=== PATIENT | male | born 1960 | race African-American/Black ===

== ENCOUNTER → 2024-08-05 13:27 | Outpatient (REF) | payer OTHER, SELFPAY ==
[2024-08-05 13:26] LABS: % Basophils 2.1 % (0-2); % Eosinophils 4.4 % (0-6); % Immature Granulocytes 0.6 % (0-0.5); % Lymphocytes 21.2 % (20.5-51.1); % Monocytes 5.7 % (1.7-9.3); Absolute Basophils 0.3 10^3/uL (0-0.2); Absolute Eosinophils 0.7 10^3/uL (0-0.7); Absolute Immature Granulocytes 0.1 10^3/uL (0-0.05); Absolute Lymphocytes 3.3 10^3/uL (1.2-3.4); Absolute Monocytes 0.9 10^3/uL (0.1-0.6); Absolute Neutrophils 10.4 10^3/uL (1.4-6.5); Hemoglobin 10.7 g/dL (13.0-18.0); Mean Corp Hgb Conc. 26.8 g/dL (33.0-37.0); Mean Corpuscular Hgb 15.3 pg (27.0-31.0); Mean Corpuscular Volume 57.1 fL (80.0-94.0); Nucleated Red Blood Cells % 1.8 % (-); Platelet Count 579 10^3/uL (130-400); Red Blood Cell Count 7.01 10^6/uL (4.70-6.10); Red Cell Dist. Width 29.3 % (11.5-14.5); White Blood Cell Count 15.7 10^3/uL (4.8-10.8)
== END ==
LOC: OIDL 13:27
PROVIDERS: ATTENDING PHYSICIAN Nurse Practitioner Acute Care
DX: D45 Polycythemia vera (principal)
CPT/HCPCS: 85025

== ENCOUNTER → 2024-09-02 12:48 | Outpatient (REF) | payer OTHER, SELFPAY | LOC: HWRAD 12:48 | PROVIDERS: ATTENDING PHYSICIAN Nurse Practitioner Adult Health | DX: D45 Polycythemia vera (principal); R80.9 Proteinuria, unspecified | CPT/HCPCS: 76770 ==

== ENCOUNTER → 2024-10-25 15:59 | Outpatient (REF) | payer OTHER, SELFPAY | LOC: RAD 15:59 | PROVIDERS: ATTENDING PHYSICIAN Nurse Practitioner Adult Health; REFERRING PHYSICIAN Student in an Organized Health Care Education/Training Program | DX: S99.922A Unspecified injury of left foot, initial encounter (principal) | CPT/HCPCS: 73630 ==

== ENCOUNTER → 2024-11-19 07:02 | Outpatient (REF) | payer OTHER, SELFPAY | LOC: HWRCS 07:02 | PROVIDERS: ATTENDING PHYSICIAN Student in an Organized Health Care Education/Training Program; FAMILY PHYSICIAN Nurse Practitioner Adult Health | DX: I25.5 Ischemic cardiomyopathy (principal) | CPT/HCPCS: 93306 ==

== ENCOUNTER 2024-12-03 06:10 | Day surgery (SDC) | payer OTHER, SELFPAY ==
[2024-12-03 08:15] VITALS: BMI 25.8
[2024-12-03 08:16] VITALS: BMI 25.8
[2024-12-03 08:17] VITALS: BP 113/56
[2024-12-03 08:28] LABS: Glucose - Point of Care 125 mg/dl (70-99)
[2024-12-03 10:04] VITALS: BP 107/56
[2024-12-03 10:15] VITALS: BP 130/65
[2024-12-03 10:16] LABS: Glucose - Point of Care 96 mg/dl (70-99)
[2024-12-03 10:30] VITALS: BP 132/67
== END 2024-12-03 10:55 | disposition home or self-care (01) ==
LOC: GI 06:10
PROVIDERS: ATTENDING PHYSICIAN Internal Medicine
DX: Z12.11 Encounter for screening for malignant neoplasm of colon (principal); K64.8 Other hemorrhoids; R63.4 Abnormal weight loss; K22.89 Other specified disease of esophagus; K29.70 Gastritis, unspecified, without bleeding; D12.3 Benign neoplasm of transverse colon; K62.1 Rectal polyp; Z86.0100 Personal history of colon polyps, unspecified
CPT/HCPCS: 45385; 45380; 43239; 88305; 82962; 88342

== ENCOUNTER 2025-01-13 14:30 | Inpatient (IN) | payer OTHER, SELFPAY ==
[2025-01-11 21:00] VITALS: BP 142/91
[2025-01-11 22:00] VITALS: BP 123/71
--- NOTE | 2025-01-11 22:13 | ED.GENMED ---
History of Present Illness
General
Chief Complaint: Chest Pain
Source: patient and spouse
Exam Limitations: none
Time Seen by Provider: 01/11/25 21:58
History of Present Illness
History of Present Illness:
Pleasant 64-year-old male presents to the emergency department with left-sided chest pain. Patient states that the pain has been going on since 9:30 AM and is nonradiating. Patient has extensive cardiac history he was followed by Dr. Fuentes. He
has 3 stents and an internal defibrillator. Patient is diabetic and takes oral agents for control. Patient reports no alleviating or exacerbating factors. He states his last episode of chest pain was just prior to arrival. Denies fever, chills,
nausea or vomiting. Reports no respiratory issues.
Past History
Past History
ED Past Medical History: GERD, HTN and Hypercholesterolemia
ED Past Surgical History: Cardiac (ICD left side, 3 stents)
Social History
Tobacco: Non-smoker
Personal: Single
Review of Systems
Review of Systems
Allergies reviewed?: Yes
All Other Systems: ROS reviewed and negative except as documented in HPI and ROS
Constitutional: Reports no symptoms
EENT: Reports no symptoms
Respiratory: Denies trouble breathing
Cardiac: Reports chest pain
ABD/GI: Reports no symptoms
: Reports no symptoms
Musculoskeletal: Reports no symptoms
Skin: Reports no symptoms
Neurological: Reports no symptoms
Endocrine: Reports no symptoms
Hematologic/Lymphatic: Reports no symptoms
Psychiatric: Reports no symptoms
Phy Exam
General Physical Exam
General Presentation: well appearing and no apparent distress
General Skin: warm and dry
General Habitus: normal
General Mental: alert
General Hydration: appears well hydrated
ENT Exam
ENT Exam: EOMI, pharynx normal, neck supple and normocephalic
Eye Exam
Eye Exam: PERRL, cornea clear and conjunctiva normal
Cardiovascular Exam
Cardiovascular Exam: regular rate/rhythm, no edema, no murmur and normal peripheral pulses
Pulmonary Exam
Pulmonary Exam: lungs clear, no respiratory distress, no rales, no crackles, no rhonchi, no stridor, no wheezing and no cough
Gastrointestinal Exam
Gastrointestinal Exam: normal bowel sounds, non tender, soft, no organomegaly, no pulsatile mass and non distended
Neurological Exam
Neurological Exam: alert, oriented x3, no motor deficits and speech normal
Musculoskeletal Exam
Musculoskeletal Exam: full ROM and no edema
Skin Exam
Skin Exam: normal color, warm/dry, no rash and no petechia
Psychiatric Exam
Psychiatric Exam: normal mood/affect
Scores
Heart Score for Chest Pain Patients
STEMI patient?: No
History: Moderately Suspicious
ECG: Nonspecific Repolarization
Age: >/= 65 years
Risk Factors: >/= 3 Risk Factors or History of CAD
Troponin: >1 - <3 x Normal Limit
Heart Score for Chest Pain Patients: 7
Heart Score Risk: 72.7 % MACE over next 6 weeks
Course
Orders/Labs/Results
Orders:
Orders
01/11/25 20:57
EKG [Electrocardiogram (*1)] Urgent
Reason for Study: Chest Pain
01/11/25 20:58
EKG- Treatment ONCE
01/11/25 21:52
Complete Blood Count/With Diff Urgent
Comprehensive Metabolic Panel Urgent
Manual Differential Urgent
Troponin I Urgent
01/11/25 22:15
CR Chest - 2 Views Urgent
Comment:
Reason For Exam: cp
01/12/25 00:35
Electrocardiogram (*1) Urgent
Reason for Study: Chest Pain
EKG- Treatment ONCE
01/12/25 00:39
Troponin I Urgent
01/12/25 00:59
CT Chest PE Study Urgent
Comment:
Reason For Exam: PCV dx with chest pain
01/12/25 03:00
Flush (0.9% Sodium Chloride) [Flush (Nss)] See Dose Instructions IV PER PROTOCOL
01/12/25 03:09
Admit/Transfer Patient As Directed
Co-Sign Provider:
Level of Care: Observation services
Assign to:: Telemetry
Physician / Group: Loli
Diagnosis: Chest pain
Reason for Telemetry: Chest Pain syndromes
Date to Stop Telemetry: 01/14/25
Time to Stop Telemetry: 11:00
PRN Pain Medication Management As Directed
May give lesser potent ordered pain med per pt: Yes
preference::
Protocol:: Medication orders for pain may be administered in a
manner that supports deferring to patient preference
when the pt is:
- Requesting an ordered lesser potent pain medication.
Least to most potent pain medications are defined
as: acetaminophen < NSAID < tramadol < opioids
(morphine, oxycodone, hydromorphone).
- Requesting a lesser dose of the same medication IF
ORDERED.
- Requesting a less intrusive route of administration
if both routes are prescribed by the provider (PO <
IV).
01/12/25 03:11
Code Status As Directed
Resuscitation Status: Full Code
01/14/25 11:00
DC Protocol for Telemetry ONCE
Abnormal Lab Results
01/11/25
21:52
WBC 19.0 H 10^3/uL
(4.8-10.8)
RBC 7.07 H 10^6/uL
(4.70-6.10)
Hgb 12.8 L g/dL
(13.0-18.0)
MCV 59.5 L fL
(80.0-94.0)
MCH 18.1 L pg
(27.0-31.0)
MCHC 30.4 L g/dL
(33.0-37.0)
RDW 31.3 H %
(11.5-14.5)
Plt Count 556 H 10^3/uL
(130-400)
Abs Neuts (Manual) 13.3 H 10^3/uL
(1.4-6.5)
Lymphocytes (Manual) 17 L %
(20-51)
Chloride 110 H mmol/L
(98-107)
Glucose 123 H mg/dl
(70-99)
01/11/25 21:52
01/11/25 21:52
Vital Signs
Initial and Last Documented VS:
Initial Vital Signs
Temp Pulse Resp BP Pulse Ox
98.7 F 75 18 142/91 100
01/11/25 21:00 01/11/25 21:00 01/11/25 21:00 01/11/25 21:00 01/11/25 21:00
Last Documented Vital Signs
Temp Pulse Resp BP Pulse Ox
98.7 F 65 9 126/57 97
01/11/25 21:00 01/11/25 23:45 01/11/25 23:45 01/11/25 23:00 01/11/25 22:15
*EKG
Interpreted by ED Provider?: Yes
Heart Rate: 69
Rate: normal
Rhythm: sinus
[place]: left axis deviation
Interval: normal interval
QRS Pattern: normal QRS
Ischemia: non-specific ST changes
*Model Making Supervisor Interpretation
Rate: normal
Interpretation: normal
Heart Rate: 72
Rhythm: sinus
*Critical Care Note
Total Time (30-74mins, 75-104mins- exclusive of procedures): Not Applicable
ED Attending Note
-
Portions of this chart may have been created with voice recognition software.� Occasional wrong word or��sound alike� substitutions may have occurred due to the inherent limitations of voice recognition software.
Discharge Plan
Departure
Patient Disposition: Admit
Date of Disposition: 01/12/25
Time of Disposition: 02:03
Admit to: Telemetry
Presentation/result/management discussed w/ accepting MD/DO: Hospitalist
Condition: Good
Discharge Problem:
Chest pain
Interventions
Interventions:
*Risk Screen - Suicide Last Done: 01/11/25 20:59
*General Assessment Last Done: 01/11/25 20:59
*ED- Fall Risk Assessment Last Done: 01/11/25 20:59
*ED COVID-19 Vaccine History Last Done: 01/11/25 20:59
ED- Cardiac Assessment Last Done: 01/11/25 22:03
[2025-01-11 22:22] LABS: ALT (SGPT) 15 U/L (0-50); AST (SGOT) 24 U/L (17-59); Albumin 4.2 g/dl (3.5-5.0); Alkaline Phosphatase 117 U/L (38-126); Blood Urea Nitrogen 14 mg/dl (9-20); Calcium 9.4 mg/dl (8.4-10.2); Carbon Dioxide 24 mmol/L (22-30); Chloride 110 mmol/L (98-107); Glucose 123 mg/dl (70-99); Potassium 4.2 mmol/L (3.5-5.1); Sodium 139 mmol/L (135-145); Total Bilirubin 0.9 mg/dl (0.2-1.3); Total Protein 6.9 g/dl (6.3-8.2); eGFR > 60.00
[2025-01-11 22:32] LABS: Troponin I < 0.012 ng/ml
[2025-01-11 22:44] LABS: Hematocrit 42.1 % (39.0-52.0); Hemoglobin 12.8 g/dL (13.0-18.0); Mean Corp Hgb Conc. 30.4 g/dL (33.0-37.0); Mean Corpuscular Hgb 18.1 pg (27.0-31.0); Mean Corpuscular Volume 59.5 fL (80.0-94.0); Platelet Count 556 10^3/uL (130-400); Red Blood Cell Count 7.07 10^6/uL (4.70-6.10); Red Cell Dist. Width 31.3 % (11.5-14.5)
[2025-01-11 22:45] LABS: Absolute Neutrophils -Man Diff 13.3 10^3/uL (1.4-6.5); Atypical Lymphocytes 6 %; Band Neutrophils 3 % (0-3); Eosinophils 5 % (0-6); Lymphocytes 17 % (20-51); Monocytes 2 % (2-9); Normal RBC Morphology No; Platelets Checked Yes; Segmented Neutrophils 67 % (42-75); Smudge Cells 1+
[2025-01-11 22:48] LABS: Total Cells Counted 100
[2025-01-11 22:49] LABS: Hypochromasia 3+; Microcytosis 4+; Poikilocytosis 3+; Target Cells 3+
[2025-01-11 22:53] LABS: Acanthocytes 1+; Ovalocytes 1+; Schistocytes Occasional; Tear Drop Red Blood Cells 1+
[2025-01-11 23:00] VITALS: BP 126/57
[2025-01-12] VITALS (12 sets, daily range): BP systolic 95–119; BP diastolic 52–80; BMI 25.4
[2025-01-12 01:26] LABS: Troponin I 0.022 ng/ml
--- NOTE | 2025-01-12 02:46 | HPS.HSE ---
Family Physician
-
Family Physician: NOT KNOW UNKNOWN - PT DOES
Chief Complaint
-
Chest pain
History of Present Illness
This is a 64-year-old with past medical history of CAD status post multiple MIs the last AR in 2018 with multiple stents placed, ischemic cardiomyopathy status post ICD placement with recovered EF to around 45%, CHF with EF of 45%, hypertension,
hyperlipidemia, diabetes, polycythemia vera, presented to the emergency department with 1 day history of atypical chest pain.
Patient reported her symptoms started around 9 AM on day of admission. He noted that he has left-sided chest pain that seems to be associated with movement and positional changes. Reported that it appears to be sharp and nonradiating. He denied
having any shortness of breath. He denies any dyspnea on exertion. He denies any palpitations lightheadedness or dizziness. He reported that he has not had any chest pain since he walked into the emergency room. Patient denied that the pain is
any worse with ambulation. He denied any recent exertional dyspnea, exertional chest pain orthopnea PND or lower extremity swelling.
He reports compliance with medications which include ongoing use of aspirin and Plavix as well as a statin. He denies any recent cough cold fevers or chills. He denies any recent changes in amount of physical activity or heavy lifting.
Recently started on hydroxyurea for thrombocytosis.
In the emergency department he was afebrile, blood pressure was 126/70 with a pulse of 65 satting 97% on room air. ECG showed normal sinus rhythm at a rate of 69 with 4 degree AV block. No normal Q waves in the inferior leads unchanged from
prior. T wave inversions in 4 through 6 unchanged from prior. Chest x-ray clear.
Troponin was negative at 0.012. Repeat troponin trended up to 0.022.
White count was 19 hemoglobin 12.8 and a blood count of 556 which is similar to his prior.
Electrolytes were normal. BUN/creatinine were normal.
Medical History
Past Medical History
Past Medical History: Reports Other
Additional Past Medical History:
PCV, CAD status post NSTEMI, stenting of proximal ramus 2017, LAD stenting with acute in-stent thrombosis in 2007, ischemic cardiomyopathy status post ICD placement 2012, CHF with reduced EF, diabetes, hypertension, hyperlipidemia, tobacco use
Past Surgical History: Reports Other
Social History
Tobacco: Former Smoker
Alcohol: None
Drug: None
Living: With Family
Family History
Family History: Not pertinent
Allergies / Home Medications
Allergies reflects when Allergies were last updated in [facility].
Home Medications with original date entered in [facility]
Allergy/Medication List:
Allergies
Allergy/AdvReac Type Severity Reaction Status Date / Time
niaspan Allergy 'burned Uncoded 01/11/25 20:59
skin'
Home Medications
aspirin 81 mg tablet,delayed release 81 mg PO DAILY 05/16/13
nitroglycerin 0.4 mg sublingual tablet (Nitrostat) 0.4 mg sublingual PRN PRN cp 05/16/13
pantoprazole 40 mg tablet,delayed release 40 mg PO DAILY 05/16/13
atorvastatin 80 mg tablet 80 mg PO QPM ##90 07/24/18
clopidogrel 75 mg tablet 75 mg PO DAILY ##90 07/24/18
furosemide 40 mg tablet 40 mg PO MOWEFR #36 tabs 07/24/18
metformin 1,000 mg tablet 1,000 mg PO BID ##0 07/24/18
metoprolol succinate 100 mg tablet,extended release 24 hr 100 mg PO HS ##90 07/24/18
spironolactone 25 mg tablet 25 mg PO DAILY ##90 07/24/18
dapagliflozin propanediol 10 mg tablet (Farxiga) 10 mg PO DAILY 12/03/24
ezetimibe 10 mg tablet 10 mg PO DAILY 12/03/24
sacubitril 97 mg-valsartan 103 mg tablet (Entresto) 1 tab PO BID 12/03/24
Review of Systems
-
Constitutional: Reports No Symptoms
EENT: Reports No Symptoms
Respiratory: Reports No Symptoms
Cardiac: Reports No Symptoms
Abdomen/GI: Reports No Symptoms
: Reports No Symptoms
Musculoskeletal: Reports No Symptoms
Skin: Reports No Symptoms
Neurological: Reports No Symptoms
Endocrine: Reports No Symptoms
Hematologic/Lymphatic: Reports No Symptoms
Psych: Reports No Symptoms
Physical Exam
Vital Signs
Vital Signs
Temp Pulse Resp BP Pulse Ox
98.7 F 65 9 126/57 97
01/11/25 21:00 01/11/25 23:45 01/11/25 23:45 01/11/25 23:00 01/11/25 22:15
Physical Exam
General: Well Developed, Well Nourished and No Apparent Distress
HEENT: NormoCephalic, Moist mucous membranes and Atraumatic
Respiratory: Clear
Cardiac: S1/S2 and Regular Rhythm; No Murmur or Rub
GI: Soft, Non Tender, Non Distended and Normal Bowel Sounds; No Organomegaly
Rectal: Deferred by Provider
Musculoskeletal: No Clubbing, No Cyanosis and No Edema
Skin: No Rash
Neuro: Nonfocal/grossly intact
Laboratory Results
-
01/11/25 21:52
01/11/25 21:52
Laboratory Results
Total Bilirubin 0.9 mg/dl (0.2-1.3) 01/11/25 21:52
AST 24 U/L (17-59) 01/11/25 21:52
ALT 15 U/L (0-50) 01/11/25 21:52
Alkaline Phosphatase 117 U/L (38-126) 01/11/25 21:52
Troponin I 0.022 ng/ml D 01/12/25 00:39
Data Reviewed
-
Diagnostic Radiology: Image Personally Visualized and interpreted
Medical Tests (Nuc Med, Echo, EKG etc): Image Personally Visualized and interpreted
Lab Data: Labs Reviewed by me
Old Records: Reviewed
Impression/Plan
-
IMPRESSION:
64-year-old with past medical history significant for CAD status post AR, history cardiomyopathy EF around 45% status post ICD placement, hypertension hyperlipidemia, parasitemia vera presenting to the emergency department with atypical chest pain.
He reports sharp left-sided chest pain that is nonradiating and not associated with any nausea vomiting diaphoresis or dyspnea and seems to be associated with position and movement. I was unable to reproduce the pain with palpation of his chest.
He is currently chest pain-free since arrival in the emergency department without any intervention. ECG is nonischemic with known Q waves compared to prior. Chest x-ray shows no acute infiltrates or rib fracture or overall edema. His troponin is
negative on the first 1, repeat troponin was 0.022. His electrolytes were all normal BUN/creatinine normal. CBC notable for leukocytosis and thrombocytosis which is similar to his CBC from last month.
PLAN:
Chest pain�atypical chest pain in patient with significant risk factors and prior history of coronary artery disease with multiple stents
-Admit to telemetry observation
-Continue statin troponin
-Given that patient is chest pain-free, no indication for heparin at this time
-Continue with aspirin, Plavix, statin
- CTPE
-If troponin remains negative and patient is chest pain-free, can likely follow-up with cardiology as an outpatient
- cardiology consultation
Ischemic cardiomyopathy -EF 45%, hemodynamically stable, no evidence of overt volume overload.
- Continue metoprolol succinate 100 mg daily
� Continue furosemide 40 mg Monday
� Continue Entresto 97/103 twice daily
- Aspirin lactone 25 daily
Diabetes
- Continue patient's metformin 1000 mg a.m. and 5 mg at bedtime
- Sensitive sliding scale insulin
PCV
- Continue his hydroxyurea 500 daily
DVT prophylaxis�Lovenox subcu
CODE STATUS�full code
[2025-01-12 07:35] LABS: Glucose - Point of Care 122 mg/dl (70-99)
[2025-01-12 07:35] LABS: Troponin I < 0.012 ng/ml
[2025-01-12] MEDS: ASPIR LOW (ENTERIC COATED) 81 MG PO (07:41)
[2025-01-12] MEDS: GLUCOPHAGE 1000 MG PO (07:41)
[2025-01-12] MEDS: PLAVIX 75 MG PO (07:41)
[2025-01-12] MEDS: ZETIA PO (07:43)
[2025-01-12] MEDS: ENTRESTO 97 MG/103 MG 1 TAB PO ×2 (07:43→20:42)
[2025-01-12] MEDS: FARXIGA 10 MG PO (07:45)
[2025-01-12] MEDS: ALDACTONE 25 MG PO (07:45)
[2025-01-12] MEDS: HYDREA 500 MG PO (07:46)
[2025-01-12] MEDS: PROTONIX 40 MG PO (08:09)
--- NOTE | 2025-01-12 09:32 | W.PN.HOSP.TC ---
Today's Communication/Plan
-
Plan for cardiac cath in a.m.
Assessment / Plan
Assessment / Plan
Physical exam:
General: Well Developed, Well Nourished and No Apparent Distress
HEENT: Normocephalic, Atraumatic and Moist Mucous Membranes
Respiratory: Clear to Auscultation; Negative Wheezes, Rales or Rhonchi
Cardiac: Regular Rhythm and S1/S2
GI: Soft, Nontender and Nondistended
Musculoskeletal: No Clubbing, No Cyanosis and No Edema
Neuro: Awake, Alert and Oriented
Psych: Calm
A/P:
Chest pain concern for angina pectoris:
Start heparin drip
Continue DAPT, beta-blockers, and statin
Cardiology consult-discussed with cardiology today
CT no evidence of PE
Plan for cardiac cath tomorrow
NSVT:
Continue beta-lui
Cardiac monitoring
Chronic HFrEF:
Euvolemic
Continue oral diuretic
Continue Entresto, beta-lui, spironolactone, SGLT2 inhibitor
Hypertension:
Continue usual hypertensive meds
Hyperlipidemia:
Continue statins and ezetimibe
Diabetes mellitus type 2:
Insulin sliding scale
Hemoglobin A1c 5.7
Hold metformin due to use of CTA contrast and in anticipation of contrast use with cardiac
Polycythemia vera:
Continue Droxia urea
Monitor hematopoietic cell count
GERD:
Continue PPI
DVT prophylaxis:
Heparin drip
CODE STATUS:
Full code
Anticipated Discharge: 24 - 48 hours
Subjective/Interval History
-
Date of Service: January 12, 2025
Patient had a chest discomfort when walking short distances. No shortness of breath at rest.
Objective Data
-
Labs:
Laboratory Results
01/11/25
21:52
WBC 19.0 H
Hgb 12.8 L
Hct 42.1
Plt Count 556 H
Sodium 139
Potassium 4.2
Chloride 110 H
Carbon Dioxide 24
BUN 14
Creatinine 1.0
Glucose 123 H
Calcium 9.4
Total Bilirubin 0.9
AST 24
ALT 15
Alkaline Phosphatase 117
Vital Signs:
Vital Signs
Temp Pulse Resp BP Pulse Ox
98.0 F 63 18 119/60 99
01/12/25 07:00 01/12/25 07:43 01/12/25 07:00 01/12/25 07:45 01/12/25 07:00
I&O
01/11/25 01/12/25 01/13/25
06:59 06:59 06:59
Intake Total 240 / 240
Balance 240 / 240
[2025-01-12 10:28] LABS: Troponin I < 0.012 ng/ml
[2025-01-12 10:55] LABS: HDL Cholesterol 27 mg/dl; LDL Cholesterol, Calculated 38 mg/dl; Total Cholesterol 81 mg/dl (50-199); Triglyceride 81 mg/dl (10-149); Very Low Density Lipoprotein 16 mg/dl (0-30)
[2025-01-12 11:34] LABS: Glucose - Point of Care 106 mg/dl (70-99)
[2025-01-12 12:20] LABS: Glycohemoglobin (HgbA1c) 5.7 % (4.0-5.6)
--- NOTE | 2025-01-12 12:40 | CON.CAR ---
Addendum entered and electronically signed by Alfred Ontiveros MD 01/12/25 13:52:
Patient seen and examined in collaboration with PGY 2 resident; agree with below.
- 64-year-old male (now known to Dr. Blue) with coronary artery disease status-post STEMI with VF arrest and LAD stenting (1999), IRENE to ramus intermedius (2018), known residual CAD (70-80% mid LAD in-stent restenosis, D2 tandem 80% proximal
stenoses; dominant RCA with 60% proximal stenosis and [place] in the midportion on cardiac catheterization in 2018), hypertension, hyperlipidemia, diabetes, former smoking history, ischemic cardiomyopathy status-post ICD implantation (initial LVEF 30%,
most recently 35-40% on 08/03/2020), and former smoking history presenting with chest pain.
- The patient states that he began experience chest pain while at home sitting down; had recurrent chest pain here in the hospital when walking to his room (exertional).
- Slight bump in troponin from less than 0.12 to 0.22 (although still in low range).
- Physical examination: Heart regular rate and rhythm, normal S1-S2, no murmurs/rubs/gallops; lungs clear to auscultation bilaterally; no edema.
- Patient's symptoms are highly concerning for angina, especially given known residual coronary artery disease as outlined above.
- Patient had a 5-beat run of NSVT on telemetry.
- Will start patient on a heparin drip.
- Will arrange cardiac catheterization for tomorrow; NPO after midnight.
- Continue aspirin, atorvastatin, Plavix, ezetimibe, and Toprol-XL.
- quality assurance monitor final.
-
Original Note:
Documented by User: Iam Knight MD, Resident 01/12/25 13:01
Consultation
Consultation Request
Date/Time Consultation Requested: 01-12-25
Date/Time Consultation Performed: 01-12-25
Requesting Provider: Dr. Hansel Ennis
Performing Provider: Dr. Alfred Ontiveros
Reason for Consultation: Chest pain
Medical History
-
Chief Complaint: Chest pain
History of Present Illness:
Gerard Darnell, 64-year-old male with a complex cardiac history, is admitted for evaluation of chest pain. He has complex cardiac disease with hx CAD and ischemic CM. In 1999 he had STEMI with VF x2 requiring LAD stenting while living in [place]. In
2007 he had elective LAD stenting at [facility] complicated by stent thrombosis/anterior TX 48 hrs post PCI (he was home) requiring repeat stenting. AN ICD was placed in 2012 for primary prevention of SCD due to LVEF 30%. On 01-11-25, he got up from
his chair when he felt a left-sided chest pain wrapping around laterally. Describes it as more of an ache that would come and go. Worsened by movement. Due to his significant cardiac history, came to the hospital. While admitted, experienced a
similar episode on the floor. ECG without acute changes. Troponin, while remaining within normal limits, did have a small bump.
Past Medical History
Past Medical History: Other (PCV, CAD status post STEMI and VF in 1999, stenting of proximal ramus 2017, LAD stenting with acute in-stent thrombosis in 2007, ischemic cardiomyopathy status post ICD placement 2012, CHF with reduced EF, diabetes,
hypertension, hyperlipidemia, tobacco use)
Social History
Tobacco: Former Smoker (q 2017)
Alcohol: Occasional
Drug: None
Living: With Family
Employment: Retired
Family History
Family History: Reviewed & Not Pertinent
Allergies / Home Medications
Allergy/AdvReac Type Severity Reaction Status Date / Time
niaspan Allergy 'burned Uncoded 01/11/25 20:59
skin'
�Medication �Instructions �Recorded �Confirmed �Type
aspirin 81 mg tablet,delayed 81 mg PO DAILY 05/16/13 12/03/24 History
release
nitroglycerin 0.4 mg sublingual 0.4 mg sublingual PRN PRN cp 05/16/13 12/03/24 History
tablet (Nitrostat)
pantoprazole 40 mg tablet,delayed 40 mg PO DAILY 05/16/13 12/03/24 History
release
atorvastatin 80 mg tablet 80 mg PO QPM ##90 07/24/18 12/03/24 Rx
clopidogrel 75 mg tablet 75 mg PO DAILY ##90 07/24/18 12/03/24 Rx
furosemide 40 mg tablet 40 mg PO MOWEFR #36 tabs 07/24/18 12/03/24 Rx
metformin 1,000 mg tablet 1,000 mg PO BID ##0 07/24/18 12/03/24 Rx
metoprolol succinate 100 mg 100 mg PO HS ##90 07/24/18 12/03/24 Rx
tablet,extended release 24 hr
spironolactone 25 mg tablet 25 mg PO DAILY ##90 07/24/18 12/03/24 Rx
dapagliflozin propanediol 10 mg 10 mg PO DAILY 12/03/24 12/03/24 History
tablet (Farxiga)
ezetimibe 10 mg tablet 10 mg PO DAILY 12/03/24 12/03/24 History
sacubitril 97 mg-valsartan 103 mg 1 tab PO BID 12/03/24 12/03/24 History
tablet (Entresto)
Review of Systems
-
History Source: Patient
All other systems: Negative unless noted
Constitutional: No Symptoms
EENT: No Symptoms
Respiratory: No Symptoms
Cardiac: No Symptoms
Abdomen/GI: No Symptoms
: No Symptoms
Musculoskeletal: No Symptoms
Skin: No Symptoms
Neurological: No Symptoms
Endocrine: No Symptoms
Hematologic/Lymphatic: No Symptoms
Physical Exam
Vital Signs
Temp Pulse Resp BP Pulse Ox
97.8 F 61 18 107/52 98
01/12/25 11:00 01/12/25 11:00 01/12/25 11:00 01/12/25 11:00 01/12/25 11:00
Lab Results
01/11/25 21:52
01/11/25 21:52
Troponin I < 0.012 ng/ml 01/12/25 09:23
Physical Exam
General: No Apparent Distress and Comfortable
HEENT: Normocephalic, Anicteric, Moist Mucous Membranes and Atraumatic
Respiratory: Clear and Non Labored Respirations
Cardiac: S1/S2 and Regular Rhythm; Negative Murmur, Rub or Peripheral Edema
GI: Soft, Non Tender and Non Distended
Genito-urinary: No Costovertebral Tender
Musculoskeletal: No Clubbing, No Cyanosis and No Edema
Skin: Warm and Dry
Neuro: Awake, Alert, Oriented, No Motor Deficits and Nonfocal/Grossly Intact
Hematologic/Lymphatic: No Lymphadenopathy
Psych: Calm
Impression / Plan
-
Atypical chest pain
Minimal troponin bump (not elevation)
- Troponin bumped to 0.022 on 01-12-25; normalized since.
- From his last cath in 2017, there was an area of the second diagonal that had a diffuse disease burden and managed medically since.
- Considering his significant cardiac history, atypical chest pain that is movement dependent and the troponin bump, would recommend [facility] to evaluate for actionable ischemic disease.
- Continue aspirin, clopidegrel and high-intensity statin.
Ischemic cardiomyopathy
- 11-19-24: left ventricular ejection fraction is 40-45%.
- Not volume overloaded and asymptomatic.
- Continue sacubitril-valsartan, metoprolol, spironolactone, dapagliflozin and furosemide.
Primary hypertension
- Goal normotension
Hyperlipidemia
- LDL at goal of <55.
Type II diabetes mellitus: A1c 5.7
Polycythemia vera
GERD

Documented by User: Alfred Ontiveros MD 01/12/25 13:45
Impression / Plan
-
Chest pain
- Minimal troponin bump (not elevation)
- Troponin bumped to 0.022 on 01-12-25; normalized since.
- From his last cath in 2018, there was an area of the second diagonal that had a diffuse disease burden and managed medically since.
- Considering his significant cardiac history, atypical chest pain that is movement dependent and the troponin bump, would recommend [facility] to evaluate for actionable ischemic disease.
- Continue aspirin, clopidegrel and high-intensity statin.
Ischemic cardiomyopathy
- 11-19-24: left ventricular ejection fraction is 40-45%.
- Not volume overloaded and asymptomatic.
- Continue sacubitril-valsartan, metoprolol, spironolactone, dapagliflozin and furosemide.
Primary hypertension
- Goal normotension
Hyperlipidemia
- LDL at goal of <55.
Type II diabetes mellitus: A1c 5.7
Polycythemia vera
GERD
Data Reviewed
-
EKG: Tracing Personally Visualized and interpreted (EKG 01/12/2025: Sinus rhythm with first-degree AV block, left axis deviation, inferior infarct, anteroseptal infarct, and lateral T wave inversion.)
Labs: Labs Reviewed by me
--- NOTE | 2025-01-12 14:08 | CM ---
CM reviewed chart, patient seen bedside, initial assessment completed. Patient resides with his in a multiple story home, 5 steps to enter home. Patient is independent with ADLs/IADLs, denies use of DME. Patient denies VN/SNF history. Patient
confirms PCP Flavia Granados, pharmacy [facility], confirms prescription coverage. Patient denies insecurities at home. OBS form verbally reviewed, provided with copy, placed on chart. Patient for cardiac cath tomorrow. CM will continue to follow
for all discharge planning needs.
Plan; home with when stable
[2025-01-12] MEDS: HEPARIN 4000 UNITS IV (14:20)
[2025-01-12] MEDS: HEPARIN 25000 UNITS/250 ML IV (14:44)
[2025-01-12 14:51] LABS: APTT 34.8 Sec (23.4-35.0)
[2025-01-12 15:02] LABS: Hematocrit 41.4 % (39.0-52.0); Hemoglobin 12.2 g/dL (13.0-18.0); Mean Corp Hgb Conc. 29.5 g/dL (33.0-37.0); Mean Corpuscular Hgb 17.6 pg (27.0-31.0); Mean Corpuscular Volume 59.8 fL (80.0-94.0); Platelet Count 515 10^3/uL (130-400); Red Blood Cell Count 6.92 10^6/uL (4.70-6.10); Red Cell Dist. Width 30.9 % (11.5-14.5)
[2025-01-12 16:33] LABS: Glucose - Point of Care 128 mg/dl (70-99)
[2025-01-12] MEDS: LIPITOR 80 MG PO (17:53)
[2025-01-12] MEDS: ZETIA 10 MG PO (17:53)
[2025-01-12 21:02] LABS: APTT 49.4 Sec (23.4-35.0)
[2025-01-12] MEDS: TOPROL XL 100 MG PO (21:24)
[2025-01-12 23:51] LABS: Glucose - Point of Care 137 mg/dl (70-99)
[2025-01-13] VITALS (10 sets, daily range): BP systolic 102–145; BP diastolic 49–74
[2025-01-13 03:58] LABS: APTT 63.5 Sec (23.4-35.0)
[2025-01-13 06:20] LABS: Glucose - Point of Care 129 mg/dl (70-99)
[2025-01-13] MEDS: PROTONIX 40 MG PO (07:55)
[2025-01-13] MEDS: HYDREA 500 MG PO (07:55)
[2025-01-13] MEDS: FARXIGA 10 MG PO (07:55)
[2025-01-13] MEDS: ALDACTONE 25 MG PO (07:55)
[2025-01-13] MEDS: PLAVIX 75 MG PO (07:55)
[2025-01-13] MEDS: ASPIR LOW (ENTERIC COATED) 81 MG PO (07:55)
[2025-01-13] MEDS: ENTRESTO 97 MG/103 MG 1 TAB PO ×2 (07:56→21:16)
[2025-01-13] MEDS: LASIX 40 MG PO (07:57)
[2025-01-13] MEDS: ZETIA PO (08:22)
[2025-01-13 10:19] LABS: Hematocrit 44.5 % (39.0-52.0); Hemoglobin 13.2 g/dL (13.0-18.0); Mean Corp Hgb Conc. 29.7 g/dL (33.0-37.0); Mean Corpuscular Hgb 17.7 pg (27.0-31.0); Mean Corpuscular Volume 59.8 fL (80.0-94.0); Platelet Count 549 10^3/uL (130-400); Red Blood Cell Count 7.44 10^6/uL (4.70-6.10); Red Cell Dist. Width 31.3 % (11.5-14.5); White Blood Cell Count 17.3 10^3/uL (4.8-10.8)
[2025-01-13 10:26] LABS: APTT 102.8 Sec (23.4-35.0)
[2025-01-13 10:56] LABS: Blood Urea Nitrogen 11 mg/dl (9-20); Calcium 9.5 mg/dl (8.4-10.2); Carbon Dioxide 24 mmol/L (22-30); Chloride 110 mmol/L (98-107); Estimated Creatinine Clearance 95 ml/min; Glucose 119 mg/dl (70-99); Potassium 4.4 mmol/L (3.5-5.1); Sodium 139 mmol/L (135-145); eGFR > 60.00
--- NOTE | 2025-01-13 12:04 | W.PN.HOSP.TC ---
Today's Communication/Plan
-
see plan
Assessment / Plan
Assessment / Plan
Gen: NAD, AAOx3.
Eyes: EOMI, PERRLA, no scleral icterus.
Neck: supple.
CV: RRR, +S1/S2, no m/r/g.
Resp: CTAB, no rales, wheezes, or rhonchi.
Abd: +BS, soft, NT, ND
Skin: No rashes.
Neuro: CN 2-12 intact, non-focal.
Psych: Normal mood and affect.
CT chest: No evidence of central pulmonary embolism. Small subendocardial hypoattenuation along the left ventricular apex which may be within the limits of normal. This can be seen with myocardial infarction. Suggest correlation with EKG and
troponin levels. At least relative thickening of the wall of the included portions of the stomach which may be due to underdistention. Other etiology such as gastritis cannot be excluded.
Chest pain due to unstable angina due to distal LAD CAD:
-concern for unstable angina on admission
-trop NEG x 4
-was on heparin gtt
-cont cont ASA/Plavix/BB/statin/Zetia
-cath 01/12/25: 80% dLAD. Xience Skypoint 2.5 x 15 IRENE, post dilated with a 2.75 NCB. LVEDP 14 mmHg.
Other problems:
h/o NSVT: cont BB
Chronic HFrEF: cont BB/Entresto/Aldactone/Farxiga/Lasix
Essential HTN: cont BB/Entresto/Aldactone/Lasix
Hyperlipidemia: cont statin/Zetia
DM2: a1c 5.7%, SSI/accuchecks, home Metformin on hold
GERD: cont PPI
FULL/Heparin drip prior to cath, Lovenox to start tonight
Anticipated Discharge: Within 24 hours
Subjective/Interval History
-
Date of Service: January 13, 2025
Currently denies chest pain. No acute complaints.
Objective Data
-
Labs:
Laboratory Results
01/13/25 01/13/25
03:33 10:08
WBC 17.3 H
Hgb 13.2
Hct 44.5
Plt Count 549 H
APTT 63.5 H 102.8 H
Sodium 139
Potassium 4.4
Chloride 110 H
Carbon Dioxide 24
BUN 11
Creatinine 0.8
Glucose 119 H
Calcium 9.5
Vital Signs:
Vital Signs
Temp Pulse Resp BP Pulse Ox
97.4 F 56 20 114/60 99
01/13/25 07:44 01/13/25 10:57 01/13/25 10:57 01/13/25 10:57 01/13/25 10:57
I&O
01/12/25 01/13/25 01/14/25
06:59 06:59 06:59
Intake Total 240 / 240 480 / 480
Output Total 600 / 600
Balance 240 / 240 480 / 480 -600 / -600
--- NOTE | 2025-01-13 14:23 | ITS.CL.ANGIO ---
Nutrition Therapist - Angioplasty
Angioplasty
Procedure Report:
CARDIAC CATHETERIZATION REPORT
Date of Procedure: 01/13/2025
Referring: Alfred Ontiveros M.D.
INDICATION: Known coronary artery disease, unstable angina with both exertional and resting chest pain.
PROCEDURE:
1. Left heart catheterization.
2. Coronary angiography.
3. Successful PCI of the distal LAD.
A total of 50 minutes of procedural/moderate sedation was utilized. An independent medical corps officer was present to assist with and help manage the patient's level of consciousness and physiologic status.
ACCESS:
1. 6 [place]riot [right radial] artery right radial.
CATHETERS:
1. 5 [place] JR4.
2. 5 [place] JL 3.5.
3. 6 [place] EBU 3.5 guiding catheter.
HEMODYNAMIC DATA
Weight (kg): 80.3
AO (s/d/x, mmHg): 110/63/82
LV (s/x mmHg): 114/8
LEFT VENTRICULOGRAPHY: Not performed.
CORONARY ANGIOGRAPHY
Dominance: Right.
Left Main: Normal size, trifurcating vessel. There is no coronary artery disease.
LAD: Normal size vessel giving rise to 3 diagonals. Patent stents are visible through the entire proximal and mid vessel, spanning the origin of all 3 diagonals. There is a hazy, 80% lesion in the distal LAD, beyond the previously stented
segments. There is a 70% lesion in the apical LAD.
Ramus: Normal size vessel supplying the majority of the lateral wall. Patent stents are visible in the proximal and ostial margin.
Circumflex: Normal size, nondominant vessel giving rise to 1 notable obtuse marginal. There are luminal irregularities throughout.
RCA: Normal size, dominant vessel. The vessel is chronically totally occluded in its midportion. The RPDA and distal RCA are supplied by collaterals from the LAD and septal perforators.
INTERVENTION(S)
1. Successful PCI of the 80% distal LAD lesion (Xience Skypoint 2.5 x 15 IRENE, postdilated with a 2.5 NC balloon throughout and a 2.75 NC balloon in the proximal margin) with reduction in stenosis to 0%, maintaining GRICEL-3 flow.
Narrative:
The decision was made to proceed with percutaneous coronary intervention. The diagnostic catheter was removed over a wire and a 6Fr EBU 3.5 guiding catheter was advanced to the aortic root and seated in the left main coronary artery. Additional
heparin was given and a Power Turn Flex wire was advanced into the apical LAD. The hazy, 80% distal LAD lesion was predilated with a 2.0 x 12 semi-compliant balloon to 12 dajuan. The semi-compliant balloon was removed and a Xience Skypoint 2.5 x 15
drug-eluting stent was advanced. The stent was deployed at 12 atmospheres. The stent balloon was removed. A 2.5 x 8 noncompliant balloon was advanced into the stent and the stent was postdilated to 14 atmospheres throughout. The noncompliant
balloon was withdrawn and a 2.75 x 8 noncompliant balloon was advanced. The proximal margin of the stent was postdilated to 15 dajuan. The noncompliant balloon was withdrawn. Angiography was performed in orthogonal views, confirming good stent
expansion and an excellent angiographic result. The coronary wire was withdrawn and the guide was disengaged from the artery. The catheter was removed over a standard J-wire.
Closure Device: Vascular band.
Radiation (mGy): 722.81
DAP (cm2.Gy): 53.2219
Fluoroscopy time (minutes): 7.5
CONCLUSIONS
1. Right dominant circulation with a chronic total occlusion of the mid RCA with collaterals from the LAD, patent stents in the proximal and ostial ramus, luminal irregularities in the circumflex, patent stents in the proximal and mid LAD spanning
the origin of all 3 diagonals and a new, hazy, 80% lesion in the distal LAD status post successful PCI (Xience Skypoint 2.5 x 15 IRENE, postdilated with a 2.5 NC balloon throughout and a 2.75 NC balloon in the proximal margin) with reduction in
stenosis to 0%, maintaining GRICEL-3 flow and a 70% lesion in the apical LAD.
2. Normal filling pressures (LVEDP = 8 mmHg at 80.3 kg).
RECOMMENDATIONS:
1. Expectant management after cardiac catheterization via right radial approach.
2. Limited weight bearing on the right wrist for one week.
3. Maintain dual antiplatelet therapy with aspirin and clopidogrel for at least 12 months, followed by aspirin indefinitely. Reloaded with clopidogrel 300 mg in the Nutrition Therapist.
4. Continue aggressive secondary prevention with high-dose, high potency statin and ezetimibe. Goal LDL <55.
5. OMT/GDMT as hemodynamics will permit. RCA HOSPICE CLINICAL MARKETER and apical LAD stenosis will be managed medically.
6. Referral to cardiac rehab.
Copy to: Oscar Blue M.D., PhD, FLOR Tan, Alfred Ontiveros M.D.
David Rowe DO, FACC, FACP
[2025-01-13 14:35] LABS: ACT-LR - POC > 397 Seconds (116-155)
[2025-01-13 14:35] LABS: ACT-LR - POC > 397 Seconds (116-155)
--- NOTE | 2025-01-13 14:47 | PTCARENOTE ---
pt sent to labor service representative via stretcher at 10:20am. pts belongings given to family member for transport to new room location at 14:35
--- NOTE | 2025-01-13 14:50 | PTCARENOTE ---
Received pt from photonic laboratory technician, monitor showing SR, 1st deg AVB, +BBB. VSS. Right radial band intact, no bleeding, no hematoma noted. +CMS to fingers. Instructed on activity restrictions, daughter at bedside, call trevino in reach.
[2025-01-13 14:54] LABS: Glucose - Point of Care 113 mg/dl (70-99)
--- NOTE | 2025-01-13 15:27 | W.PN.CD ---
Today's Communication / Plan
-
S/P PCI to dLAD.
Maintain DAPT.
OMT/GDMT as tolerated.
Referral to cardiac rehab.
Discharge planning (likely tomorrow).
Impression / Plan
-
Impression/Plan: 64 yo/ male with NIDDM, HTN, HLD, ischemic cardiomyopathy, prior VT/VF s/p ICD and CAD s/p multiple prior stents admitted with unstable angina.
#Unstable angina/CAD
-Acute on chronic.
-Minimal troponin bump (not elevation).
-Cardiac catheterization shows stable RI/prox + mid LAD stents with residual diagonal disease and a new, hazy, 80% dLAD lesion, now s/p Xience Skypoint 2.5 x 15 IRENE, post dilated with 2.5 NCB throughout, 2.75 NCB in the proximal margin, with
reduction in stenosis to 0%, maintaining GRICEL III flow.
-Continue aspirin, clopidogrel and high-intensity statin.
-Referral to cardiac rehab.
#Ischemic cardiomyopathy
-Chronic, stable.
-Echo 11-19-24: left ventricular ejection fraction is 40-45%.
-Not volume overloaded and asymptomatic.
-GDMT:
-Diuretic: Furosemide 40 mg PO //.
-Beta Lalit: Metoprolol succinate 100 mg daily.
-ACEI/ARB/ARNi: Sacubitril-Valsartan 97/103 mg BID.
-MRA: Spironolactone 25 mg daily.
-SGLT2i: Dapagliflozin 10 mg daily.
-ICD: [employer] Model #E160, serial #[id number]; [employer] Lead Model #0295; serial #[id number]; LVEF now 40-45%.
#Primary hypertension
-Chronic, generally stable.
-Continue sacubitril/valsartan, metoprolol, spironolactone.
#Hyperlipidemia
-Chronic, stable.
-Total cholesterol = 81, LDL = 38, HDL = 27, Triglycerides = 81.
-LDL at goal. Continue atorvastatin/ezetimibe.
#NIDDM2
-Chronic, stable.
-HbA1c 5.7%.
-Continue dapagliflozin 10 mg daily.
-Resume metformin 1000 mg BID on 01/15/2025.
#Polycythemia vera/Thrombocytosis
-Chronic.
-Continue aspirin.
#GERD
Subjective/Interval History:
Cath showed a new, 80% dLAD lesion, now s/p PCI.
LVEDP = 8 mmHg.
Generally feels well.
DATA:
Cardiac catheterization/PCI, 01/13/2025:
CONCLUSIONS
1. Right dominant circulation with a chronic total occlusion of the mid RCA with collaterals from the LAD, patent stents in the proximal and ostial ramus, luminal irregularities in the circumflex, patent stents in the proximal and mid LAD spanning
the origin of all 3 diagonals and a new, hazy, 80% lesion in the distal LAD status post successful PCI (Xience Skypoint 2.5 x 15 IRENE, postdilated with a 2.5 NC balloon throughout and a 2.75 NC balloon in the proximal margin) with reduction in
stenosis to 0%, maintaining GRICEL-3 flow and a 70% lesion in the apical LAD.
2. Normal filling pressures (LVEDP = 8 mmHg at 80.3 kg).
Physical Exam
Vital Signs/Labs
Vital Signs
Temp Pulse Resp BP Pulse Ox
36.4 C 72 20 145/74 99
01/13/25 14:51 01/13/25 15:00 01/13/25 10:57 01/13/25 15:00 01/13/25 10:57
01/12/25 01/13/25 01/14/25
11:59 11:59 11:59
Actual Weight 80.314 kg
01/13/25 10:08
01/13/25 10:08
APTT 102.8 Sec (23.4-35.0) H 01/13/25 10:08
Triglycerides 81 mg/dl (10-149) 01/12/25 06:30
LDL Cholesterol, Calc 38 mg/dl 01/12/25 06:30
VLDL Cholesterol, Calc 16 mg/dl (0-30) 01/12/25 06:30
HDL Cholesterol 27 mg/dl 01/12/25 06:30
LAB Results
01/11/25 01/12/25 01/12/25
21:52 00:39 06:30
Troponin I < 0.012 0.022 D < 0.012 D
01/12/25
09:23
Troponin I < 0.012
Physical Exam
Constitutional: No acute distress and Comfortable
EENT: Anicteric and Moist mucous membranes
Cardiovascular: Rhythm & rate is regular, Pedal edema is absent, JVD pressure is normal, S1S2 is normal and Murmur/rub/gallop absent
Respiratory: Respiratory effort normal, Lungs clear to auscul., Wheeze Absent, Crackles Absent and Rhonchi Absent
GI: Soft, Distention absent, Flat, Non tender and Normal bowel sounds
Neuro/Psych: AO x 3
Data Reviewed
-
Date of Service: January 13, 2025
Medical Decision Making: Reviewed Test Results, Independent Historian Assessment and Test Interpretation
EKG: Tracing Personally Visualized and interpreted and Report Reviewed by me
Echo: Report Reviewed by me
X-Ray/CT/US/MRI/NUC/PET: Image Personally Visualized and interpreted and Report Reviewed by me
Medical Tests (PFT, Pathology etc): Image Personally Visualized and interpreted, Report Reviewed by me, Discussed with Patient and Discussed with Family
Labs: Labs Reviewed by me
Old Records: Reviewed
--- NOTE | 2025-01-13 16:20 | CM ---
Reviewed chart. Mr. Darnell was transferred to IVU. Met with Mr. Darnell to review discharge plans. He states prior to admission he resides with his spouse in a three story home with five steps to enter. He states he has a full flight of steps to get
to the second floor where the main bedroom/full bathroom are located. He states prior to admission he was independent with ambulation and adls. He states he does not have any DME in the home. He states he has a prescription plan and uses [facility]. Medical work-up in progress. The discharge plan is to return home with his spouse when medically stable.
[2025-01-13] MEDS: LOVENOX 40 MG SC (17:46)
[2025-01-13 17:57] LABS: Glucose - Point of Care 105 mg/dl (70-99)
[2025-01-13 19:09] LABS: Hepatitis C Antibody Negative (Negative)
[2025-01-13] MEDS: ZETIA 10 MG PO (21:15)
[2025-01-13 21:16] LABS: Glucose - Point of Care 108 mg/dl (70-99)
[2025-01-13] MEDS: LIPITOR 80 MG PO (21:16)
[2025-01-13] MEDS: TOPROL XL 100 MG PO (23:07)
[2025-01-14 03:09] VITALS: BP 101/53
[2025-01-14 03:36] VITALS: BMI 25.5
--- NOTE | 2025-01-14 03:43 | PTCARENOTE ---
Assumed care on pt at change of shift, ssox3, st bedside. Pt denies pain/discomfort or SOB. SR/SB on the monitor with 1st degree HB, HR 55-70's, soft bp 100/50's. R radial site clean and intact, no bleeding or hematoma noted. Pt reminded again
on activity restrictions. Call trevino within reach, POC ongoing.
[2025-01-14 03:56] LABS: Hematocrit 40.5 % (39.0-52.0); Mean Corp Hgb Conc. 29.6 g/dL (33.0-37.0); Mean Corpuscular Hgb 17.8 pg (27.0-31.0); Mean Corpuscular Volume 59.9 fL (80.0-94.0); Platelet Count 509 10^3/uL (130-400); Red Blood Cell Count 6.76 10^6/uL (4.70-6.10); Red Cell Dist. Width 30.5 % (11.5-14.5); White Blood Cell Count 17.5 10^3/uL (4.8-10.8)
[2025-01-14 04:13] LABS: Blood Urea Nitrogen 19 mg/dl (9-20); Calcium 9.4 mg/dl (8.4-10.2); Carbon Dioxide 22 mmol/L (22-30); Chloride 110 mmol/L (98-107); Estimated Creatinine Clearance 95 ml/min; Glucose 114 mg/dl (70-99); Potassium 4.3 mmol/L (3.5-5.1); Sodium 137 mmol/L (135-145); eGFR > 60.00
[2025-01-14 06:54] VITALS: BP 108/62
[2025-01-14 06:59] LABS: Glucose - Point of Care 132 mg/dl (70-99)
[2025-01-14] MEDS: PROTONIX 40 MG PO (08:11)
[2025-01-14] MEDS: ASPIR LOW (ENTERIC COATED) 81 MG PO (08:11)
[2025-01-14] MEDS: ENTRESTO 97 MG/103 MG 1 TAB PO (08:11)
[2025-01-14] MEDS: PLAVIX 75 MG PO (08:12)
[2025-01-14] MEDS: ALDACTONE 25 MG PO (08:12)
[2025-01-14] MEDS: FARXIGA 10 MG PO (08:12)
[2025-01-14] MEDS: HYDREA 500 MG PO (08:12)
--- NOTE | 2025-01-14 08:24 | W.PN.CD ---
Today's Communication / Plan
-
continue current medications
cardiac rehab referral
ok for discharge hoem
Impression / Plan
-
Impression/Plan: 64 yo/ male with NIDDM, HTN, HLD, ischemic cardiomyopathy, prior VT/VF s/p ICD and CAD s/p multiple prior stents admitted with unstable angina.
#Unstable angina/CAD
-Acute on chronic.
-Minimal troponin bump (not elevation).
-Cardiac catheterization shows stable RI/prox + mid LAD stents with residual diagonal disease and a new, hazy, 80% dLAD lesion, now s/p Xience Skypoint 2.5 x 15 IRENE, post dilated with 2.5 NCB throughout, 2.75 NCB in the proximal margin, with
reduction in stenosis to 0%, maintaining GRICEL III flow.
-Continue aspirin, clopidogrel and high-intensity statin.
-Referral to cardiac rehab.
#Ischemic cardiomyopathy
-Chronic, stable.
-Echo 11-19-24: left ventricular ejection fraction is 40-45%.
-Not volume overloaded and asymptomatic.
-GDMT:
-Diuretic: Furosemide 40 mg PO //.
-Beta Lalit: Metoprolol succinate 100 mg daily.
-ACEI/ARB/ARNi: Sacubitril-Valsartan 97/103 mg BID.
-MRA: Spironolactone 25 mg daily.
-SGLT2i: Dapagliflozin 10 mg daily.
-ICD: [employer] Model #E160, serial #[id number]; [employer] Lead Model #0295; serial #[id number]; LVEF now 40-45%.
#Primary hypertension
-Chronic, generally stable.
-Continue sacubitril/valsartan, metoprolol, spironolactone.
#Hyperlipidemia
-Chronic, stable.
-Total cholesterol = 81, LDL = 38, HDL = 27, Triglycerides = 81.
-LDL at goal. Continue atorvastatin/ezetimibe.
#NIDDM2
-Chronic, stable.
-HbA1c 5.7%.
-Continue dapagliflozin 10 mg daily.
-Resume metformin 1000 mg BID on 01/15/2025.
#Polycythemia vera/Thrombocytosis
-Chronic.
-Continue aspirin.
#GERD
Subjective/Interval History:
He is feeling well without complaint
DATA:
Cardiac catheterization/PCI, 01/13/2025:
CONCLUSIONS
1. Right dominant circulation with a chronic total occlusion of the mid RCA with collaterals from the LAD, patent stents in the proximal and ostial ramus, luminal irregularities in the circumflex, patent stents in the proximal and mid LAD spanning
the origin of all 3 diagonals and a new, hazy, 80% lesion in the distal LAD status post successful PCI (Xience Skypoint 2.5 x 15 IRENE, postdilated with a 2.5 NC balloon throughout and a 2.75 NC balloon in the proximal margin) with reduction in
stenosis to 0%, maintaining GRICEL-3 flow and a 70% lesion in the apical LAD.
2. Normal filling pressures (LVEDP = 8 mmHg at 80.3 kg).
Physical Exam
Vital Signs/Labs
Vital Signs
Temp Pulse Resp BP Pulse Ox
97.6 F 52 18 108/62 99
01/14/25 06:51 01/14/25 08:12 01/14/25 06:51 01/14/25 08:12 01/14/25 06:51
01/13/25 01/14/25 01/15/25
06:59 06:59 06:59
Actual Weight 177 lb 11.081 oz
01/14/25 03:21
01/14/25 03:21
APTT 102.8 Sec (23.4-35.0) H 01/13/25 10:08
Triglycerides 81 mg/dl (10-149) 01/12/25 06:30
LDL Cholesterol, Calc 38 mg/dl 01/12/25 06:30
VLDL Cholesterol, Calc 16 mg/dl (0-30) 01/12/25 06:30
HDL Cholesterol 27 mg/dl 01/12/25 06:30
LAB Results
01/11/25 01/12/25 01/12/25
21:52 00:39 06:30
Troponin I < 0.012 0.022 D < 0.012 D
01/12/25
09:23
Troponin I < 0.012
Physical Exam
Constitutional: No acute distress
Cardiovascular: Rhythm & rate is regular, Pedal edema is absent, JVD pressure is normal, Systolic murmur absent and Diastolic murmur absent
Respiratory: Respiratory effort normal, Lungs clear to auscul., Wheeze Absent, Crackles Absent and Rhonchi Absent
Neuro/Psych: AO x 3
Data Reviewed
-
Date of Service: January 14, 2025
Medical Decision Making: Review of Case with other Provider (ok to discharge from the medical center perspective )
EKG: Other (sinus collette)
--- NOTE | 2025-01-14 10:28 | W.PN.HOSP.TC ---
Today's Communication/Plan
-
d/c
Assessment / Plan
Assessment / Plan
Gen: NAD, AAOx3.
Eyes: EOMI, PERRLA, no scleral icterus.
Neck: supple.
CV: collette, reg rhythm, +S1/S2, no m/r/g.
Resp: remains CTAB, no rales, wheezes, or rhonchi.
Abd: remains +BS, soft, NT, ND
Skin: No rashes.
Neuro: CN 2-12 intact, non-focal.
Psych: Normal mood and affect.
CT chest: No evidence of central pulmonary embolism. Small subendocardial hypoattenuation along the left ventricular apex which may be within the limits of normal. This can be seen with myocardial infarction. Suggest correlation with EKG and
troponin levels. At least relative thickening of the wall of the included portions of the stomach which may be due to underdistention. Other etiology such as gastritis cannot be excluded.
Chest pain due to unstable angina due to distal LAD CAD:
-concern for unstable angina on admission
-trop NEG x 4
-was on heparin gtt prior to cath
-cont cont ASA/Plavix/BB/statin/Zetia
-cath 01/12/25: 80% dLAD. Xience Skypoint 2.5 x 15 IRENE, post dilated with a 2.75 NCB. LVEDP 14 mmHg.
-medically cleared for discharge
Other problems:
h/o NSVT: cont BB
Chronic HFrEF: cont BB/Entresto/Aldactone/Farxiga/Lasix
Essential HTN: cont BB/Entresto/Aldactone/Lasix
Hyperlipidemia: cont statin/Zetia
DM2: a1c 5.7%, SSI/accuchecks, home Metformin on hold
GERD: cont PPI
FULL/Lovenox
Total time spent on d/c = 31 min. This included today's physical exam, progress note, review of laboratory and diagnostic data, preparation of discharge documents and prescriptions, and discussions about the pt's hospital course and discharge plan
with the patient and other neuropsychology medical consultant involved in the patient's care.
Anticipated Discharge: Today
Subjective/Interval History
-
Date of Service: January 14, 2025
Objective Data
-
Labs:
Laboratory Results
01/14/25
03:21
WBC 17.5 H
Hgb 12.0 L
Hct 40.5
Plt Count 509 H
Sodium 137
Potassium 4.3
Chloride 110 H
Carbon Dioxide 22
BUN 19
Creatinine 0.8
Glucose 114 H
Calcium 9.4
Vital Signs:
Vital Signs
Temp Pulse Resp BP Pulse Ox
97.6 F 55 18 108/62 96
01/14/25 06:51 01/14/25 10:15 01/14/25 06:51 01/14/25 08:12 01/14/25 08:30
I&O
01/13/25 01/14/25 01/15/25
06:59 06:59 06:59
Intake Total 480 / 480 480 / 480
Output Total 600 / 600
Balance 480 / 480 -120 / -120
--- NOTE | 2025-01-14 11:00 | CM ---
Reviewed chart. Met with Mr. Darnell to review discharge plans. He states he is feeling well and maybe able to go home soon. Prior to admission he resides with his spouse in a three story home with five steps to enter. He states he has a full
flight of steps to get to bedroom/full bathroom. Prior to admission he was independent with ambulation and adls. He does not have any DME in the home. He does have a prescription plan and uses [facility]. Medical work-up in progress. The
discharge plan is to return home with his spouse when medically stable.
--- NOTE | 2025-01-14 11:18 | PTCARENOTE ---
received patient this am, right radial dsg. removed from site, ecchymotic, distal pulse palpable. monitor shows NSR, VSS. patient is going to be discharged today, doctor ordered Pneumovax, patient declined, wanted to talk to primary doctor, not sure
if he received it.
[2025-01-14 11:43] VITALS: BP 101/55
--- NOTE | 2025-01-14 12:10 | PTCARENOTE ---
D/C instructions given to patient and , both verbalizes understanding. INT D/C'd, telemetry D/C'd, personal belongings packed and sent home with patient. D/C to home via wc accompanied by staff.
--- NOTE | 2025-01-15 16:29 | W.DCSUMMARY ---
Discharge Summary
Discharge Data
Date of Admission: 01/12/25
Date of Discharge: 01/14/25
-
Pending Results: No
Hospital Course
Primary diagnoses:
Chest pain due to unstable angina with angioplasty and stent to Left Anterior Descending artery
Secondary diagnoses:
h/o nonsustained ventricular tachycardia
Chronic heart failure with reduced ejection fraction
Essential hypertension
Hyperlipidemia
Type 2 diabetes mellitus
Gastroesophageal reflux disease
Consultants:
Cardiology
Imaging:
CT chest: No evidence of central pulmonary embolism. Small subendocardial hypoattenuation along the left ventricular apex which may be within the limits of normal. This can be seen with myocardial infarction. Suggest correlation with EKG and
troponin levels. At least relative thickening of the wall of the included portions of the stomach which may be due to underdistention. Other etiology such as gastritis cannot be excluded.
Hospital course: 64-year-old male who presented with a chief complaint of chest pain as outlined in the H&P done on admission. Patient had 4 negative troponins. He was placed on a heparin drip. He was continued on ASA/Plavix/BB/statin/Zetia. He
had a cardiac catheterization on 01/12/25 showing 80% dLAD. Xience Skypoint 2.5 x 15 IRENE, post dilated with a 2.75 NCB. LVEDP 14 mmHg. He was medically cleared for discharge by cardiology
Discharge Plan
-
Patient Disposition: Home (Routine Discharge)
Discharge Diagnosis/Procedures: Chest pain due to unstable angina, Angioplasty and stent to Left Anterior Descending artery
Condition: Good
Diet: Diabetic, Carb Controlled
Activity: As tolerated
Driving Restrictions: As prior to admission
Other Services: Cardiac Rehab
Stand Alone Forms: DC Instructions- Cath/EP Lab
Referrals:
[facility]. Cardiac Rehab [Outside] - 02/12/25 1:00 pm
Referral Note: Cardiac Rehab Orientation appointment is on 02/12 at 1 PM
The Cardiac Rehab gym is located on the first floor of the [facility].
Tamra Argueta NP [Specified Professional Personl, Cardiology] - 02/05/25 9:40 am
Flavia Granados CRNP [Specified Professional Personl, General] - in less than 1 week
Prescriptions:
Continued
aspirin 81 MG tablet,delayed release (DR/EC)
81 mg PO DAILY
pantoprazole 40 MG tablet,delayed release (DR/EC)
40 mg PO DAILY
nitroglycerin [Nitrostat] 0.4 MG tablet, sublingual
0.4 mg sublingual PRN PRN (Reason: cp)
atorvastatin 80 MG tablet
80 mg PO QPM Qty: 90 3RF
metoprolol succinate 100 MG tablet extended release 24 hr
100 mg PO HS Qty: 90 3RF
clopidogrel 75 MG tablet
75 mg PO DAILY Qty: 90 3RF
spironolactone 25 MG tablet
25 mg PO DAILY Qty: 90 3RF
furosemide 40 MG tablet
40 mg PO MOWEFR Qty: 36 3RF
metformin 1,000 MG tablet
1,000 mg PO BID Qty: 0 0RF
ezetimibe 10 mg Tablet
10 mg PO DAILY
dapagliflozin propanediol [Farxiga] 10 mg Tablet
10 mg PO DAILY
Entresto 97-103 mg Tablet
1 tab PO BID
Discharge Orders:
Discharge Patient (As Directed); Ordered 01/14/25
Ordered By: Dennis Jacobsen
Care Plan Goals
Care Plan Goals:
Problem: Readiness for enhanced knowledge related to diagnosis and treatment plan
Goal: Understand your diagnosis and treatment plan needs, including medications if applicable.
Instructions: Know your diagnosis, underlying causes and treatment plan options, including medications if applicable. Consult with your health care team to learn about your diagnosis and treatment plan, including medications if applicable.
Discharge Date and Time
Discharge Date/Time: 01/14/25 12:24
Print Language: YORUBA
== END 2025-01-14 12:24 | disposition home or self-care (01) | DRG 322 ==
LOC: IVU 14:30
PROVIDERS: Hospitalist; Internal Medicine Cardiovascular Disease; Nurse Practitioner; Student in an Organized Health Care Education/Training Program; ADMITTING PHYSICIAN Internal Medicine; ATTENDING PHYSICIAN Internal Medicine; CONSULT PHYSICIAN Internal Medicine; EMERGENCY PHYSICIAN Student in an Organized Health Care Education/Training Program
PROC: 4A023N7 Measurement of Cardiac Sampling and Pressure, Left Heart, Percutaneous Approach (ICD-10-PCS; 2025-01-13)
PROC: B2111ZZ Fluoroscopy of Multiple Coronary Arteries using Low Osmolar Contrast (ICD-10-PCS; 2025-01-13)
PROC: 027034Z Dilation of Coronary Artery, One Artery with Drug-eluting Intraluminal Device, Percutaneous Approach (ICD-10-PCS; 2025-01-13)
DX: I25.110 Atherosclerotic heart disease of native coronary artery with unstable angina pectoris (principal); I50.22 Chronic systolic (congestive) heart failure; I47.20 Ventricular tachycardia, unspecified; I25.5 Ischemic cardiomyopathy; E11.9 Type 2 diabetes mellitus without complications; Z87.891 Personal history of nicotine dependence; Z79.82 Long term (current) use of aspirin; Z79.02 Long term (current) use of antithrombotics/antiplatelets; Z79.899 Other long term (current) drug therapy; E78.00 Pure hypercholesterolemia, unspecified; K21.9 Gastro-esophageal reflux disease without esophagitis; D45 Polycythemia vera
CPT/HCPCS: 71046; 71275; 80048; 80053; 80061; 82962; 83036; 84484; 85025; 85027; 85347; 85730; 86803; 90677; 93005; 93458; 99152; 99153; 99285; C1725; C1874; C1894; C9600; G0009; Q9967

== ENCOUNTER → 2025-01-21 07:11 | Outpatient (REF) | payer OTHER, SELFPAY | LOC: HWRAD 07:11 | PROVIDERS: ATTENDING PHYSICIAN Internal Medicine Hematology & Oncology; FAMILY PHYSICIAN Nurse Practitioner Adult Health | DX: D45 Polycythemia vera (principal) | CPT/HCPCS: 76700 ==

== ENCOUNTER 2025-01-30 10:37 | Outpatient (RCR) | payer OTHER, SELFPAY ==
[2025-01-23 14:17] LABS: Glucose - Point of Care 110 mg/dl (70-99)
[2025-01-23 14:52] LABS: Glucose - Point of Care 97 mg/dl (70-99)
[2025-01-28 10:18] LABS: Glucose - Point of Care 210 mg/dl (70-99)
[2025-01-28 11:17] LABS: Glucose - Point of Care 88 mg/dl (70-99)
[2025-01-30 10:31] LABS: Glucose - Point of Care 113 mg/dl (70-99)
[2025-01-30 11:19] LABS: Glucose - Point of Care 99 mg/dl (70-99)
== END 2025-01-30 23:59 | disposition home or self-care (01) ==
LOC: CRHB 10:37
PROVIDERS: ATTENDING PHYSICIAN Student in an Organized Health Care Education/Training Program; FAMILY PHYSICIAN Nurse Practitioner Adult Health
DX: I25.10 Atherosclerotic heart disease of native coronary artery without angina pectoris (principal); Z95.5 Presence of coronary angioplasty implant and graft
CPT/HCPCS: 82962; G0422; G0423

== ENCOUNTER 2025-03-06 10:45 | Outpatient (RCR) | payer OTHER, SELFPAY ==
[2025-02-04 10:43] LABS: Glucose - Point of Care 210 mg/dl (70-99)
[2025-02-04 11:34] LABS: Glucose - Point of Care 68 mg/dl (70-99)
[2025-02-04 11:37] LABS: Glucose - Point of Care 72 mg/dl (70-99)
[2025-02-04 11:53] LABS: Glucose - Point of Care 128 mg/dl (70-99)
[2025-02-06 10:26] LABS: Glucose - Point of Care 179 mg/dl (70-99)
[2025-02-06 11:16] LABS: Glucose - Point of Care 74 mg/dl (70-99)
[2025-02-06 11:33] LABS: Glucose - Point of Care 105 mg/dl (70-99)
[2025-02-11 10:27] LABS: Glucose - Point of Care 194 mg/dl (70-99)
[2025-02-11 11:22] LABS: Glucose - Point of Care 74 mg/dl (70-99)
[2025-02-11 11:40] LABS: Glucose - Point of Care 138 mg/dl (70-99)
[2025-02-13 10:28] LABS: Glucose - Point of Care 199 mg/dl (70-99)
[2025-02-13 11:19] LABS: Glucose - Point of Care 116 mg/dl (70-99)
[2025-02-18 10:16] LABS: Glucose - Point of Care 145 mg/dl (70-99)
[2025-02-18 11:10] LABS: Glucose - Point of Care 92 mg/dl (70-99)
[2025-02-27 10:25] LABS: Glucose - Point of Care 198 mg/dl (70-99)
[2025-02-27 11:17] LABS: Glucose - Point of Care 72 mg/dl (70-99)
[2025-02-27 11:29] LABS: Glucose - Point of Care 81 mg/dl (70-99)
[2025-03-04 10:29] LABS: Glucose - Point of Care 150 mg/dl (70-99)
[2025-03-04 11:27] LABS: Glucose - Point of Care 93 mg/dl (70-99)
[2025-03-06 10:27] LABS: Glucose - Point of Care 94 mg/dl (70-99)
[2025-03-06 11:24] LABS: Glucose - Point of Care 115 mg/dl (70-99)
== END 2025-03-06 23:59 | disposition home or self-care (01) ==
LOC: CRHB 10:45
PROVIDERS: ATTENDING PHYSICIAN Student in an Organized Health Care Education/Training Program; FAMILY PHYSICIAN Nurse Practitioner Adult Health
DX: I25.10 Atherosclerotic heart disease of native coronary artery without angina pectoris (principal); Z95.5 Presence of coronary angioplasty implant and graft
CPT/HCPCS: 82962; G0422; G0423

== ENCOUNTER 2025-04-03 09:30 | Outpatient (RCR) | payer OTHER, SELFPAY ==
[2025-03-11 10:13] LABS: Glucose - Point of Care 158 mg/dl (70-99)
[2025-03-11 11:08] LABS: Glucose - Point of Care 84 mg/dl (70-99)
[2025-03-13 10:26] LABS: Glucose - Point of Care 77 mg/dl (70-99)
[2025-03-13 11:28] LABS: Glucose - Point of Care 81 mg/dl (70-99)
[2025-03-18 10:12] LABS: Glucose - Point of Care 163 mg/dl (70-99)
[2025-03-18 11:09] LABS: Glucose - Point of Care 100 mg/dl (70-99)
[2025-03-20 10:29] LABS: Glucose - Point of Care 191 mg/dl (70-99)
[2025-03-20 11:31] LABS: Glucose - Point of Care 87 mg/dl (70-99)
[2025-03-25 10:18] LABS: Glucose - Point of Care 142 mg/dl (70-99)
[2025-03-25 11:17] LABS: Glucose - Point of Care 113 mg/dl (70-99)
[2025-03-27 10:26] LABS: Glucose - Point of Care 121 mg/dl (70-99)
[2025-03-27 11:30] LABS: Glucose - Point of Care 81 mg/dl (70-99)
[2025-04-01 10:21] LABS: Glucose - Point of Care 177 mg/dl (70-99)
[2025-04-01 11:19] LABS: Glucose - Point of Care 79 mg/dl (70-99)
[2025-04-03 10:28] LABS: Glucose - Point of Care 127 mg/dl (70-99)
[2025-04-03 11:22] LABS: Glucose - Point of Care 94 mg/dl (70-99)
== END 2025-04-03 23:59 | disposition home or self-care (01) ==
LOC: CRHB 09:30
PROVIDERS: ATTENDING PHYSICIAN Student in an Organized Health Care Education/Training Program; FAMILY PHYSICIAN Nurse Practitioner Adult Health
DX: I25.10 Atherosclerotic heart disease of native coronary artery without angina pectoris (principal); Z95.5 Presence of coronary angioplasty implant and graft
CPT/HCPCS: 82962; G0422; G0423

== ENCOUNTER 2025-04-03 22:29 | Emergency (ER) | payer OTHER, SELFPAY ==
[2025-04-03 22:32] VITALS: BP 119/56
[2025-04-03 23:20] LABS: ALT (SGPT) 21 U/L (0-50); AST (SGOT) 27 U/L (17-59); Albumin 4.2 g/dl (3.5-5.0); Alkaline Phosphatase 125 U/L (38-126); Blood Urea Nitrogen 16 mg/dl (9-20); Calcium 9.3 mg/dl (8.4-10.2); Carbon Dioxide 26 mmol/L (22-30); Chloride 105 mmol/L (98-107); Glucose 165 mg/dl (70-99); Potassium 4.0 mmol/L (3.5-5.1); Sodium 137 mmol/L (135-145); Total Protein 7.1 g/dl (6.3-8.2); eGFR > 60.00
[2025-04-03 23:32] LABS: Troponin I < 0.012 ng/ml
[2025-04-04] VITALS (8 sets, daily range): BP systolic 105–144; BP diastolic 34–72; BMI 26.5
[2025-04-04 01:05] LABS: Hematocrit 33.6 % (39.0-52.0); Hemoglobin 9.5 g/dL (13.0-18.0); Mean Corp Hgb Conc. 28.3 g/dL (33.0-37.0); Mean Corpuscular Volume 63.6 fL (80.0-94.0); Nucleated Red Blood Cells % 1.2 % (-); Platelet Count 449 10^3/uL (130-400); Red Cell Dist. Width 28.6 % (11.5-14.5)
[2025-04-04 01:17] LABS: Troponin I < 0.012 ng/ml
[2025-04-04 03:24] LABS: Anisocytosis 3+; Hypochromasia 3+; Microcytosis 3+; Normal RBC Morphology No
[2025-04-04 04:39] LABS: Troponin I 0.015 ng/ml
[2025-04-04] MEDS: NSS 1000 IV (04:55)
[2025-04-04 06:32] LABS: Troponin I < 0.012 ng/ml
--- NOTE | 2025-04-04 06:50 | ED.GENMED ---
History of Present Illness
General
Chief Complaint: Chest Pain
Source: patient
Exam Limitations: none
Time Seen by Provider: 04/03/25 23:45
Nursing documentation reviewed up to this point in time: agreed with
History of Present Illness
History of Present Illness:
Note:
CHIEF COMPLAINT(S)
The patient presents with shortness of breath and left arm pain without chest pain.
HISTORY OF PRESENT ILLNESS
The patient is a 64-year-old male with a history of coronary artery disease and five cardiac stents in situ. He reported that the symptoms started around 9:45 PM. The patient described feeling as though he couldnt catch his breath after walking
upstairs, although he denies any chest pain. He emphasizes, 'I just couldnt catch my breath.' The shortness of breath was not accompanied by chest pain or any significant discomfort aside from the arm pain. The patient also acknowledges experiencing
left arm discomfort similar in nature to a strike, stating, 'Yeah, yeah. Do you have a strike, like not making my left off?' Despite these symptoms, there was no nausea, vomiting, fever, or diaphoresis reported. The patient attended cardiac rehab
earlier and didnt experience issues then. He mentioned that at times he feels a little uncomfortable at night when lying down, which this time took about 45 minutes to resolve.
PAST MEDICAL AND SURGICAL HISTORY
The patient has a significant history of coronary artery disease and has undergone placement of five cardiac stents.
EXTERNAL RECORDS REVIEWED
The attending physician reviewed the EKG, noting it is unchanged compared to previous tracings, describing it as 'not the best-looking EKG Christina seen.'
CHRONIC MEDICAL CONDITIONS SIGNIFICANTLY AFFECTING CARE
Coronary artery disease with multiple stents.
REVIEW OF SYSTEMS
- Respiratory: Shortness of breath without chest pain.
- Musculoskeletal: Left arm discomfort.
- Gastrointestinal: No nausea or vomiting.
- General: No fever reported.
PHYSICAL EXAM
General: Alert, no acute distress.
Skin: Warm, dry.
Head: Normocephalic, atraumatic.
Neck: Supple, trachea midline.
Eye, Ears, Nose, Mouth and Throat: Oral mucosa moist.
Cardiovascular: Normal peripheral perfusion, no edema.
Respiratory: Respirations are non-labored.
Gastrointestinal: Abdomen nondistended.
Back: Normal range of motion, normal alignment.
Musculoskeletal: Normal range of motion, normal strength.
Neurological: Alert and oriented to person, place, time, and situation, no focal neurological deficit observed.
Psychiatric: Cooperative, appropriate mood and affect.
PROBLEM LIST
Acute Problems:
- Shortness of breath
- Left arm pain
Chronic Problems:
- Coronary artery disease with multiple stents
PLAN
1. Monitor cardiac enzymes: Repeat at almost 1 AM and potentially at 4 AM depending on results.
2. Keep the patient under observation with additional testing if necessary.
3. If cardiac enzyme results suggest an issue, consider admission; otherwise, consider discharge with follow-up.
4. Provide comfort measures, including offering a blanket.
DIFFERENTIAL DIAGNOSIS
The Differential Diagnosis includes, in no particular order and is not limited to:
1. Cardiac ischemia
2. Stable angina
3. Anxiety/panic attack
4. Musculoskeletal chest pain
5. Atypical angina
6. Pulmonary embolism
7. Gastroesophageal reflux disease
8. Costochondritis
9. Heart failure exacerbation
10. Aortic dissection
EKG
My independent EKG interpretation is:
- Time of EK:51 a.m.
- Rhythm: Normal
- Heart Rate: Bradycardia at 55 beats per minute
- Intervals: Normal
- [place]: Normal
- Abnormalities: None observed
- Comparison to previous EKG: No obvious interval change noted
Disposition:
SUMMARY OF ENCOUNTER
The patient is a 64-year-old male who presented to the emergency department with chest pain that began the previous evening. Upon arrival, the patients symptoms had resolved. Given the patients history of coronary artery disease with multiple
cardiac stents, troponin levels were monitored and trended, which returned negative. The management approach was to ensure there was no acute cardiac event, and since troponin results were negative, the decision was made to advise the patient to
follow up with cardiology.
DISPOSITION
Discharge
ASSESSMENT
The primary concern was ruling out an acute cardiac event such as cardiac ischemia. Given the negative troponin results and the resolution of symptoms, the likelihood of an acute cardiac event was low, and the patient was discharged with
instructions to follow up with a customer loyalty representative.
PLAN
Monitor cardiac enzymes during the ER stay, and ensure appropriate follow-up with cardiology.
INDEPENDENT REVIEW OF LABS AND INTERPRETATION OF TESTS
My independent review of troponin levels was negative, indicating no acute myocardial injury.
FOLLOW-UP INSTRUCTIONS
The patient is advised to follow up with cardiology for further assessment and ongoing management of coronary artery disease.
MEDICATION RECONCILIATION
No new medications were prescribed during this visit.
MEDICAL DECISION MAKING
-Complexity of Data Reviewed: Chronic conditions affecting care include coronary artery disease with multiple stents. The differential diagnosis considered included cardiac ischemia and atypical angina. Data:
Category 1: Reviewed trended troponin levels which were negative.
Category 2: My independent EKG interpretation indicated a normal rhythm with bradycardia at 55 beats per minute, with no evident abnormalities compared to previous tracings.
-Risk: Consideration of Admission/Observation: Escalation of care including admission/observation was considered given the complexity and risk of the patients presenting complaint and underlying comorbidities. However, ultimately the patient is
deemed safe for outpatient management with close follow-up. Reasoning: Work-up is reassuring, does not reveal any acute life/organ threatening processes, the patients symptoms are well controlled upon reevaluation, reexamination is reassuring,
vitals are stable, and the patient is agreeable to discharge and reliable for follow-up.
DIAGNOSIS
- Chest pain, unspecified, ICD-10 code R07.9
- Coronary artery disease, ICD-10 code I25.10
Past History
Past History
ED Past Medical History: GERD, HTN and Hypercholesterolemia
ED Past Surgical History: Cardiac (ICD left side, 3 stents)
Social History
Tobacco: Non-smoker
Personal: Single
Phy Exam
Physical Exam
Physical Exam:
.
Scores
Heart Score for Chest Pain Patients
STEMI patient?: No
History: Slightly or Non-Suspicious
ECG: Normal
Age: >45 - <65 years
Risk Factors: >/= 3 Risk Factors or History of CAD
Troponin: </= Normal Limit
Heart Score for Chest Pain Patients: 3
Heart Score Risk: 2.5% MACE over next 6 weeks
Course
Orders/Labs/Results
Orders:
Orders
04/03/25 22:32
EKG [Electrocardiogram (*1)] Urgent
Reason for Study: Chest Pain
EKG- Treatment ONCE
04/03/25 22:39
CBC/With Diff [Complete Blood Count/With Diff] Urgent
04/03/25 22:43
CMP [Comprehensive Metabolic Panel] Urgent
Troponin I Urgent
04/03/25 23:48
EKG- Treatment ONCE
04/04/25 00:45
Electrocardiogram (*1) Urgent
Reason for Study: Chest Pain
04/04/25 00:48
Troponin I Urgent
04/04/25 00:54
EKG- Treatment ONCE
04/04/25 03:40
Troponin I Urgent
04/04/25 03:45
Electrocardiogram (*1) Urgent
Reason for Study: Chest Pain
04/04/25 04:51
0.9% Sodium Chloride 1000 ml [Nss] 1,000 ml IV BOLUS
04/04/25 05:41
Troponin I Urgent
Abnormal Lab Results
04/03/25 04/04/25
22:43 00:48
WBC 12.7 H 10^3/uL
(4.8-10.8)
Hgb 9.5 L g/dL
(13.0-18.0)
Hct 33.6 L %
(39.0-52.0)
MCV 63.6 L fL
(80.0-94.0)
MCH 18.0 L pg
(27.0-31.0)
MCHC 28.3 L g/dL
(33.0-37.0)
RDW 28.6 H %
(11.5-14.5)
Plt Count 449 H 10^3/uL
(130-400)
Abs Immat Gran (auto) 0.1 H 10^3/uL
(0-0.05)
Absolute Neuts (auto) 7.7 H 10^3/uL
(1.4-6.5)
Absolute Monos (auto) 0.9 H 10^3/uL
(0.1-0.6)
Absolute Basos (auto) 0.3 H 10^3/uL
(0-0.2)
Immature Gran % 0.6 H %
(0-0.5)
Basophils % 2.5 H %
(0-2)
Glucose 165 H mg/dl
(70-99)
04/04/25 00:48
04/03/25 22:43
Vital Signs
Initial and Last Documented VS:
Initial Vital Signs
Temp Pulse Resp BP Pulse Ox
97.6 F 59 15 119/56 100
04/03/25 22:32 04/03/25 22:32 04/03/25 22:32 04/03/25 22:32 04/03/25 22:32
Last Documented Vital Signs
Temp Pulse Resp BP Pulse Ox
97.6 F 58 9 107/61 99
04/03/25 22:32 04/04/25 06:30 04/04/25 06:30 04/04/25 06:00 04/04/25 03:45
*Pulse Oximetry
SaO2: 99
Oxygen Mode of Delivery: Room air
Patient hypoxic: no
*Critical Care Note
Total Time (30-74mins, 75-104mins- exclusive of procedures): Not Applicable
ED Attending Note
-
Portions of this chart may have been created with voice recognition software.� Occasional wrong word or��sound alike� substitutions may have occurred due to the inherent limitations of voice recognition software.
Discharge Plan
Departure
Patient Disposition: Home (Routine Discharge)
Date of Disposition: 04/04/25
Time of Disposition: 06:53
Patient with high blood pressure during this ER visit?: Yes
Discharge Problem:
Chest pain
Instructions: Chest Pain CBC Follow Up
Prescriptions:
No Action
aspirin 81 MG tablet,delayed release (DR/EC)
81 mg PO DAILY
pantoprazole 40 MG tablet,delayed release (DR/EC)
40 mg PO DAILY
nitroglycerin [Nitrostat] 0.4 MG tablet, sublingual
0.4 mg sublingual PRN PRN (Reason: cp)
atorvastatin 80 MG tablet
80 mg PO QPM Qty: 90 3RF
metoprolol succinate 100 MG tablet extended release 24 hr
100 mg PO HS Qty: 90 3RF
clopidogrel 75 MG tablet
75 mg PO DAILY Qty: 90 3RF
spironolactone 25 MG tablet
25 mg PO DAILY Qty: 90 3RF
furosemide 40 MG tablet
40 mg PO MOWEFR Qty: 36 3RF
metformin 1,000 MG tablet
1,000 mg PO BID Qty: 0 0RF
ezetimibe 10 mg Tablet
10 mg PO DAILY
dapagliflozin propanediol [Farxiga] 10 mg Tablet
10 mg PO DAILY
sacubitril-valsartan [Entresto] 97-103 mg Tablet
1 tab PO BID
Referrals:
Flavia Granados CRNP [Family Provider, General]
Activity Restrictions/Additional Instructions:
Thank You for choosing [facility].
It was a pleasure meeting you and taking part in your care. We hope for your continued healing and wellness.
Please read discharge instructions in their entirety. However, they are for general education and may not describe your exact diagnosis at discharge. Information on your ER visit and medical conditions were discussed with you along with appropriate
follow up information...
If indicated, please take your medications as instructed and indicated on discharge paperwork.
Please schedule a follow up appointment as directed. Call to schedule an appointment
Please return to the emergency department with ANY change in, persisting, or worsening of symptoms. If any of your symptoms do not improve, or persist, or become more severe within 6-12 hours, please return to the emergency department for further
care.
Please return to the emergency department if you develop a headache, neck pain/stiffness, fever greater than 100.4F, chest pain, shortness of breath, persistent nausea, vomiting, slurred speech, difficulty walking, numbness/tingling, weakness, signs
of infection or any other symptoms that are worrisome to you.
If you have any questions or concerns please do not hesitate to call the Hospital at or E-mail me directly at [email or web address]
Interventions
Interventions:
*Risk Screen - Suicide Last Done: 04/03/25 22:32
*General Assessment Last Done: 04/03/25 22:32
*Neglect/Abuse Screening Last Done: 04/03/25 22:32
*ED- Fall Risk Assessment Last Done: 04/04/25 01:56
*ED COVID-19 Vaccine History Last Done: 04/03/25 22:32
ED- Cardiac Assessment Last Done: 04/04/25 00:09
Discharge Date and Time
Print Language: INDONESIAN
== END 2025-04-04 07:12 | disposition home or self-care (01) ==
LOC: EMR 22:29
PROVIDERS: Emergency Medicine; EMERGENCY PHYSICIAN Student in an Organized Health Care Education/Training Program; FAMILY PHYSICIAN Nurse Practitioner Adult Health
DX: R07.9 Chest pain, unspecified (principal); I25.10 Atherosclerotic heart disease of native coronary artery without angina pectoris; I10 Essential (primary) hypertension; E78.00 Pure hypercholesterolemia, unspecified; K21.9 Gastro-esophageal reflux disease without esophagitis; Z95.5 Presence of coronary angioplasty implant and graft; Z95.810 Presence of automatic (implantable) cardiac defibrillator
CPT/HCPCS: 99284; 96360; 80053; 84484; 85025; 93005

== ENCOUNTER 2025-05-06 14:01 | Outpatient (RCR) | payer OTHER, SELFPAY ==
[2025-04-08 10:16] LABS: Glucose - Point of Care 147 mg/dl (70-99)
[2025-04-08 11:10] LABS: Glucose - Point of Care 91 mg/dl (70-99)
[2025-04-10 10:22] LABS: Glucose - Point of Care 142 mg/dl (70-99)
[2025-04-10 11:17] LABS: Glucose - Point of Care 78 mg/dl (70-99)
[2025-04-10 11:31] LABS: Glucose - Point of Care 107 mg/dl (70-99)
[2025-04-15 10:27] LABS: Glucose - Point of Care 194 mg/dl (70-99)
[2025-04-15 11:22] LABS: Glucose - Point of Care 109 mg/dl (70-99)
[2025-04-17 10:25] LABS: Glucose - Point of Care 136 mg/dl (70-99)
[2025-04-17 11:16] LABS: Glucose - Point of Care 79 mg/dl (70-99)
[2025-04-17 11:38] LABS: Glucose - Point of Care 125 mg/dl (70-99)
[2025-04-22 10:24] LABS: Glucose - Point of Care 159 mg/dl (70-99)
[2025-04-22 11:21] LABS: Glucose - Point of Care 106 mg/dl (70-99)
[2025-04-24 10:21] LABS: Glucose - Point of Care 175 mg/dl (70-99)
[2025-04-24 11:16] LABS: Glucose - Point of Care 98 mg/dl (70-99)
[2025-04-29 10:25] LABS: Glucose - Point of Care 138 mg/dl (70-99)
[2025-04-29 11:21] LABS: Glucose - Point of Care 111 mg/dl (70-99)
[2025-05-01 10:22] LABS: Glucose - Point of Care 157 mg/dl (70-99)
[2025-05-01 11:19] LABS: Glucose - Point of Care 78 mg/dl (70-99)
[2025-05-01 11:31] LABS: Glucose - Point of Care 126 mg/dl (70-99)
[2025-05-06 10:12] LABS: Glucose - Point of Care 124 mg/dl (70-99)
[2025-05-06 11:08] LABS: Glucose - Point of Care 85 mg/dl (70-99)
== END 2025-05-06 23:59 | disposition home or self-care (01) ==
LOC: CRHB 14:01
PROVIDERS: ATTENDING PHYSICIAN Student in an Organized Health Care Education/Training Program; FAMILY PHYSICIAN Nurse Practitioner Adult Health
DX: I25.10 Atherosclerotic heart disease of native coronary artery without angina pectoris (principal); Z95.5 Presence of coronary angioplasty implant and graft
CPT/HCPCS: 82962; G0422; G0423

== ENCOUNTER 2025-05-13 10:54 | Outpatient (RCR) | payer OTHER, SELFPAY ==
[2025-05-08 10:32] LABS: Glucose - Point of Care 141 mg/dl (70-99)
[2025-05-08 11:30] LABS: Glucose - Point of Care 95 mg/dl (70-99)
[2025-05-09 11:59] LABS: HDL Cholesterol 37 mg/dl; LDL Cholesterol, Calculated 45 mg/dl; Very Low Density Lipoprotein 14 mg/dl (0-30)
[2025-05-13 10:25] LABS: Glucose - Point of Care 141 mg/dl (70-99)
[2025-05-13 11:20] LABS: Glucose - Point of Care 101 mg/dl (70-99)
== END 2025-05-13 15:43 | disposition home or self-care (01) ==
LOC: CRHB 10:54
PROVIDERS: ATTENDING PHYSICIAN Student in an Organized Health Care Education/Training Program; FAMILY PHYSICIAN Nurse Practitioner Adult Health
DX: I25.10 Atherosclerotic heart disease of native coronary artery without angina pectoris (principal); Z95.5 Presence of coronary angioplasty implant and graft
CPT/HCPCS: 80061; 82962; G0422; G0423